=== PATIENT | female | born 1985 | race Caucasian/White ===

== ENCOUNTER 2022-04-19 16:16 | Emergency (ER) | payer MEDICAID ==
[~2022-04-19] VITALS: Ht 154.9 cm; Wt 117.9 kg
[2022-04-19 16:27] VITALS: BP 154/67
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
[2022-04-19] MEDS ORDERED: KETOROLAC 30 MG/ML VIAL IM ONE (18:20)
[2022-04-19] MEDS ORDERED: KETOROLAC 30 MG/ML VIAL ONE (18:24)
[2022-04-19] MEDS ORDERED: CYCL-711 PO (18:49)
[2022-04-19] MEDS ORDERED: LID5T TP (18:49)
[2022-04-19 19:00] VITALS: BP 141/75
== END 2022-04-19 19:00 | disposition home or self-care (01) ==
LOC: MED 16:16
DX: S13.4XXA Sprain of ligaments of cervical spine, initial encounter (principal); M25.512 Pain in left shoulder; X58.XXXA Exposure to other specified factors, initial encounter; Y93.89 Activity, other specified; Y92.89 Other specified places as the place of occurrence of the external cause; Y99.8 Other external cause status
CPT/HCPCS: 72040; 73030; 96372; 99284; J1885